=== PATIENT | female | born 1965 | race Caucasian/White ===

== ENCOUNTER 2024-07-28 06:07 | Day surgery (SDC) | payer BC ==
[2024-07-24 15:50] LABS: BASOPHILS # (AUTO) 0.1 X10'3 (0-0.2); BASOPHILS % (AUTO) 0.8 % (0-1); EOSINOPHILS # (AUTO) 0.3 X10'3 (0-0.9); EOSINOPHILS % (AUTO) 3.3 % (0-6); LYMPHOCYTES # (AUTO) 1.8 X10'3 (1.1-4.8); LYMPHOCYTES % (AUTO) 21.8 % (21-51); MEAN CORPUSCULAR HEMOGLOBIN 31.1 PG (27.0-31.0); MEAN CORPUSCULAR HGB CONC 33.6 g/dL (33.0-36.5); MEAN CORPUSCULAR VOLUME 92.6 FL (78-98); MEAN PLATELET VOLUME 7.2 FL (7.4-10.4); MONOCYTES # (AUTO) 0.5 X10'3 (0-0.9); MONOCYTES % (AUTO) 6.2 % (2-12); NEUTROPHILS # (AUTO) 5.6 X10'3 (1.8-7.7); NEUTROPHILS % (AUTO) 67.9 % (42-75); PRE OP HEMOGLOBIN 15.5 g/dL (12.0-16.0); PRE OP PLATELET COUNT 298 X10'3 (140-440); PRE OP WHITE BLOOD COUNT 8.2 10'3 (4.8-10.8); RED BLOOD COUNT 4.97 X10'6 (4.20-5.60); RED CELL DISTRIBUTION WIDTH 13.2 % (11.5-14.5)
[2024-07-24 16:05] LABS: ALKALINE PHOSPHATASE 83 IU/L (46-116); BLOOD UREA NITROGEN 15 MG/DL (7-18); CALCIUM 9.6 MG/DL (8.5-10.1); CHLORIDE 103 MMOL/L (99-107); CREATININE 0.79 MG/DL (0.40-0.90); PRE OP ALT 33 U/L (30-65); PRE OP ANION GAP 8 (8-16); PRE OP AST 25 U/L (10-37); PRE OP BILIRUB, TOTAL 0.6 MG/DL (0.0-1.0); PRE OP GLUCOSE 131 MG/DL (70-104); PRE OP SODIUM 140 MMOL/L (135-145); TOTAL CARBON DIOXIDE 29.1 MMOL/L (24-32); TOTAL PROTEIN 8.2 G/DL (6.4-8.2); eGFR 75 ML/MIN
[2024-07-24 16:16] LABS: PRE OP POTASSIUM 3.8 MMOL/L (3.4-5.1)
[~2024-07-28] VITALS: Ht 177.8 cm; Wt 121.7 kg
[2024-07-28] VITALS (11 sets, daily range): BP systolic 107–134; BP diastolic 74–92; PULSE 67–76; RESP 13–19; TEMP 98.3; O2SAT 96–99
[2024-07-28] MEDS: Cefazolin 3 GM/100ML NS IVPB 100 ML IV ONE (05:30)
[~2024-07-28 06:07] MED LIST: CHOL10008 PO; FEXO180T94 PO; FLAX100031 PO; LISI10TA27 PO; MAGN400C PO; MOVE FREE PO; MULT-1180 PO; PROBIOTICS PO; PROG200C11 PO; TART CHERRY PO; TURMERIC PO; TYLENOL PRN PO; VITAMIN B-12 PO
[2024-07-28] MEDS: famotidine 20mg tablet PO ONE (06:45)
[2024-07-28] MEDS: ringers solution, lacted 1,000 ML IV SCH (06:45)
[2024-07-28] MEDS ORDERED: BUPIVAcaine/PF 2.5mg/ml (0.25%) 10ml vial ONE (07:02)
[2024-07-28] MEDS ORDERED: LIDOcaine 2% (20mg/ml) 5ml vial ONE (07:02)
[2024-07-28] MEDS ORDERED: ondansetron/PF 4mg/2ml inj IV PRN (08:25)
[2024-07-28] MEDS ORDERED: ringers solution, lacted 1,000 ML IV SCH (08:25)
[2024-07-28] MEDS ORDERED: morphine 2 MG/ML inj. syringe IV PRN (08:25)
[2024-07-28] MEDS ORDERED: proCHLORperazine 10 MG/2 ml inj IV PRN (08:25)
[2024-07-28] MEDS ORDERED: meperidine/PF 25mg/ml syringe IV PRN ×3 (08:25)
[2024-07-28] MEDS ORDERED: morphine 4 MG/ML inj SYRINge IV PRN (08:25)
[2024-07-28] MEDS ORDERED: midazolam 1 mg/ML 2ml injection ONE (08:47)
[2024-07-28] MEDS ORDERED: fentaNYL/PF 50MCG/1 ML 2ML syringe ONE (08:47)
[2024-07-28] MEDS ORDERED: propofol inj 20 ML IV ONE (08:47)
== END 2024-07-28 10:23 | disposition home or self-care (01) ==
LOC: PAS 06:07
PROVIDERS: ATTEND Orthopaedic Surgery Hand Surgery
DX: G56.03 Carpal tunnel syndrome, bilateral upper limbs (principal); Z79.899 Other long term (current) drug therapy; I10 Essential (primary) hypertension; Z90.710 Acquired absence of both cervix and uterus; Z98.890 Other specified postprocedural states; Z88.6 Allergy status to analgesic agent; M47.812 Spondylosis without myelopathy or radiculopathy, cervical region; E66.9 Obesity, unspecified; Z68.38 Body mass index [BMI] 38.0-38.9, adult
CPT/HCPCS: 29848; 36415; 80053; 82948; 85025; 93005; J0690; J2003; J2250; J2704; J3010; J3490; J7030; J7120; Z7506; Z7512; A4215; A6449; A7000